=== PATIENT | female | born 1990 | race Caucasian/White ===

== ENCOUNTER 2018-04-17 17:18 | Emergency (ER) | payer MEDICAID ==
[~2018-04-17] VITALS: Ht 157.5 cm; Wt 59.0 kg
[2018-04-17 17:47] VITALS: BP 123/74
--- NOTE | 2018-04-17 18:17 | Emergency Room Report ---
History of Present Illness General Chief Complaint: Nausea, Vomiting, and Diarrhea Source: Patient Present Illness HPI 27-year-old female patient presents ER complaining of earache, sore throat, vomiting and diarrhea for the past several days. States that symptoms began when she went to [place] about a week ago, states that when she arrived [place] she had a sore throat and earache. states was seen by physician at that time and diagnosed with an infection and provided with Sudafed and Aleve, was not given antibiotics. States that after being there she began to experience diarrhea symptoms that resolved yesterday. Denies blood in stool or diarrhea. Also complaining of vomiting, states that she is able to tolerate fluids by mouth and has been drinking lots of water, states after drinking lots of water she throws up again. Denies fever, chest pain, shortness of breath. Denies abdominal pain. rest dysuria, hematuria, vaginal discharge. States some control like to have a test performed. denies vision changes or vertigo. Allergies: Coded Allergies: Dairy (Verified Allergy, Unknown, 04/17/18) Uncoded Allergies: SHELLFISH (Allergy, Unknown, 04/17/18) Patient History Past Medical History: see triage record Last Menstrual Period: 03/22 Now: No Reviewed Nursing Documentation: PMH: Agreed; PSxH: Agreed Nursing Documentation-PMH Past Medical History: No History, Except For Review of Systems All Other Systems: negative except mentioned in HPI Physical Exam Vital Signs Date Time Temp Pulse Resp B/P (MAP) Pulse Ox O2 Delivery O2 Flow Rate FiO2 04/17/18 17:37 98.8 85 14 123/74 100 Room Air 98.8 Sp02 EP Interpretation: reviewed, normal General Appearance: well appearing, no apparent distress, alert, GCS 15, non- toxic Head: normocephalic, atraumatic Eyes: bilateral eye normal inspection, bilateral eye PERRL ENT: hearing grossly normal, normal pharynx, no angioedema, normal voice, uvula midline, moist mucus membranes Neck: full range of motion Respiratory: lungs clear, normal breath sounds, no rhonchi, no respiratory distress, no accessory muscle use, no wheezing, speaking full sentences Cardiovascular #1: regular rate, rhythm, no edema Gastrointestinal: non tender, soft, no mass, non-distended, no guarding, no rebound Genitourinary: no CVA tenderness Musculoskeletal: back normal, digits/nails normal, gait/station normal, normal range of motion, non-tender Neurologic: alert, oriented x3, responsive, motor strength/tone normal, sensory intact Psychiatric: mood/affect normal Skin: no rash Lymphatic: no adenopathy Medical Decision Making PA Attestation Dr. Rojo is my supervising Physician whom patient management has been discussed with. Diagnostic Impression: Primary Impression: Nausea, vomiting, and diarrhea ER Course Pt. presents to the ED c/o vomiting and diarrhea. Ddx considered but are not limited to viral syndrome, gastritis, enteritis, food poisoning, GERD, reflux. Vital signs: are WNL, pt. is afebrile at discharge. ordered Zofran and urine . ED COURSE: Due to recent history of travel outside the country, will provide patient with Cipro antibiotics for 3 days. No erythema or edema noted in bilateral ear canals, TMs intact, nonerythematous , no erythema or edema ear canal, no pharyngeal erythema or tonsillar exudates, no tonsillar swelling, low suspicion for otitis media, otitis externa, pharyngitis, does not require antibiotics to treat area and take Tylenol for pain symptoms. Take Claritin for ear fullness. Salt water gargles for sore throat. Physical exam benign, no abdominal TTP, negative Skelton sign, negative Rovsing, negative obturator, low suspicion for appendicitis or cholecystitis, does not require labs or imaging at this time. No signs of dehydration, moist mucus membranes, cap refill <2seconds, normal skin turgor. Urine negative. informed patient of results. Patient history consistent with likely food poisoning, will provide Zofran in the ER. . Patient instructed on BRAT diet. Patient instructed to remain hydrated, drink plenty of fluids. Patient able to tolerate fluids in the ER. Patient questions asked and answered. Patient states understanding and agreement to treatment plan. ER precautions given, return to ER for new or worsening of symptoms. DISCHARGE: Rx provided for Cipro 3 days Rx provided for zofran At this time pt. is stable for d/c to home. Patient is resting comfortably, laughing, in no acute distress, nontoxic appearing. Will provide printed patient care instructions, and any necessary prescriptions. Care plan and follow up instructions have been discussed with the patient prior to discharge. Patient instructed to followup with PCP in 3-5 days. Patient reports understanding and agreement to treatment plan. Patient questions asked and answered. ER precautions given; patient instructed to return to ER for new or worsening of symptoms including but not limited to fever, intractable vomiting, severe abdominal pain, blood in stool. - Please note that this Emergency Department Report was dictated using [employer] technology software, occasionally this can lead to erroneous entry secondary to interpretation by the dictation equipment. Labs Test 04/17/18 17:45 Urine HCG, Qualitative Negative (NEGATIVE) Last Vital Signs Date Time Temp Pulse Resp B/P (MAP) Pulse Ox O2 Delivery O2 Flow Rate FiO2 04/17/18 17:47 98.8 14 123/74 100 Room Air 98.8 04/17/18 17:37 85 Status: improved Disposition: HOME, SELF-CARE Condition: Stable Scripts Ondansetron* (ZOFRAN*) 4 Mg Tablet 4 MG ORAL Q6H PRN for Nausea & Vomiting, #6 TAB Prov: Calixto Mcclain 04/17/18 Ciprofloxacin Hcl* (CIPROFLOXACIN HCL*) 500 Mg Tablet 500 MG ORAL EVERY 12 HOURS for 3 Days, #6 TAB 0 Refills Prov: Calixto Mcclain 04/17/18 Loratadine/Pseudoephedrine (CLARITIN-D 24 HOUR TABLET) 1 Each Tab.er.24h 1 TAB PO DAILY, #24 TAB Prov: Calixto Mcclain 04/17/18 Referrals: [facility],REFERRING (PCP) Patient Instructions: Diarrhea, Adult, [id number], Earache, Food Poisoning and Traveling, Sore Throat, [id number] Additional Instructions: Followup with primary care provider in 3 -5 days. Avoid spicy foods, avoid dairy foods. BRAT diet: bananas, rice, apple sauce, toast. Take medications as directed. Patient questions asked and answered. ER precautions given, patient instructed to return to ER immediately for any new or worsening of symptoms. Calixto Mcclain Apr 17, 2018 18:17
[2018-04-17] MEDS ORDERED: CIPROFLOXACIN500 M2 ORAL (18:35)
[2018-04-17] MEDS ORDERED: CLARITIN-D 241 EACH PO (18:35)
[2018-04-17] MEDS ORDERED: ZOFRAN4 M3 ORAL (18:36)
[2018-04-17 18:46] VITALS: BP 123/74
== END 2018-04-17 18:46 | disposition home or self-care (01) ==
LOC: EMR 18:00
DX: R11.2 Nausea with vomiting, unspecified (principal); R19.7 Diarrhea, unspecified; Z91.013 Allergy to seafood
CPT/HCPCS: 81025; 99283